=== PATIENT | male | born 1990 | race Caucasian/White ===

== ENCOUNTER 2020-05-29 06:54 | Outpatient (NON) | payer OTHER, SELFPAY ==
[2020-05-29 19:55] LABS: SARS-CoV-2 RNA PCR Positive
== END 2020-05-29 06:55 ==
PROVIDERS: PCP Family Medicine; Visit Provider Family Medicine
DX: U07.1 COVID-19 (principal)
CPT/HCPCS: 87635; C9803; U0003

== ENCOUNTER 2020-09-18 13:22 | Outpatient (CLI) | payer OTHER, SELFPAY | END 2020-09-18 13:23 | disposition home or self-care (01) | LOC: ANHCOVIDVC 13:22 | PROVIDERS: PCP Family Medicine | DX: Z23 Encounter for immunization (principal) | CPT/HCPCS: 0001A; 91300 ==

== ENCOUNTER 2020-10-09 11:34 | Outpatient (CLI) | payer OTHER, SELFPAY | END 2020-10-09 11:35 | disposition home or self-care (01) | LOC: ANHCOVIDVC 11:34 | PROVIDERS: PCP Family Medicine | DX: Z23 Encounter for immunization (principal) | CPT/HCPCS: 0002A; 91300 ==

== ENCOUNTER 2022-05-20 10:50 | Emergency (ER) | payer OTHER, SELFPAY ==
[2022-05-20 10:58] VITALS: BP 142/87; PULSE 115; RESP 20; TEMP 36.3; O2SAT 96
--- NOTE | 2022-05-20 12:24 | ED.URI ---
HPI - URI/Sore Throat General Chief Complaint: Upper Respiratory Infection Stated Complaint: Body Ache/Fever/Cough Time Seen by Provider: 05/20/22 12:24 Source: patient and RN notes reviewed Mode of arrival: ambulatory Limitations: no limitations History of Present Illness HPI Narrative: 31-year-old male presented for complaint of headache, body aches, sinus pressure/congestion, cough, fever/chills. Symptoms worsening over the last 2 days. he denies shortness of breath, wheezing, nausea, vomiting, diarrhea. He has taking Tylenol for symptoms. He endorses sick contacts. MD elicited complaint: cough Related Data Home Medications Medication Instructions Recorded Confirmed clonazepam 0.5 mg tablet 0.5 mg PO DIRECTED 05/20/22 05/20/22 venlafaxine 75 mg capsule,extended 75 mg PO DIRECTED 05/20/22 05/20/22 release 24 hr Allergies Allergy/AdvReac Type Severity Reaction Status Date / Time Cephalosporins Allergy Intermediate Hives / Verified 05/20/22 11:55 Red Face cefaclor Allergy Unknown Hives Verified 05/20/22 11:55 Review of Systems Review of Systems: CONSTITUTIONAL: Endorses malaise, chills, sweats, fever EYES: Denies visual changes, redness, or discharge ENT: Reports rhinorrhea, congestion, sinus pain CARDIOVASCULAR: Denies chest pain, palpitations, edema RESPIRATORY: Reports cough, post nasal drainage. Denies dyspnea GASTROINTESTINAL: Denies abdominal pain, nausea, vomiting, diarrhea SKIN: Denies rash or itching MUSCULOSKELETAL: Endorses myalgia PMFSH Social History Social History Smoking status: Never smoker Second hand tobacco smoke exposure: No Alcohol intake: current Exam Narrative: GENERAL: Ill-appearing, nontoxic HEAD: Normocephalic EYES: PERRLA, conjunctivae clear ENT: Mucous membranes moist. TM pearly walters with light reflex bilaterally; no tragal tenderness. Oropharynx erythematous without lesions or exudate NECK: Supple. No lymphadenopathy CHEST: Clear to auscultation, breath sounds equal. No wheezing, rhonchi, rales, or stridor. No respiratory distress, speaks in full sentences. HEART: Regular rate and rhythm. No murmur heard. SKIN: Warm, dry, no rash. NEURO: Alert and oriented x3. PSYCH: Normal mood and affect Course Course Emergency Course: Patient is aware of diagnosis, understands and agrees to treatment plan. Anticipatory guidance given. Patient agrees to follow-up as directed and is aware of reasons to seek care at the emergency department. Portions of this record may have been created with voice recognition software Level of Care: Express Care Visit Vital Signs Vital signs: Vital Signs Temperature 97.3 F L 05/20/22 10:58 Pulse Rate 115 H 05/20/22 10:58 Respiratory Rate 20 05/20/22 10:58 Blood Pressure 142/87 H 05/20/22 10:58 Pulse Oximetry 96 05/20/22 10:58 Oxygen Delivery Room Air 05/20/22 10:58 Temperature 97.3 F L 05/20/22 10:58 Pulse Rate 115 H 05/20/22 10:58 Respiratory Rate 20 05/20/22 10:58 Blood Pressure 142/87 H 05/20/22 10:58 Pulse Oximetry 96 05/20/22 10:58 Oxygen Delivery Room Air 05/20/22 10:58 reviewed MDM - URI/Sore Throat MDM Narrative Medical decision making narrative: Due to lack of resources, unable to perform influenza test at this time. Patient verbalizes understanding. He stated he was interested in Tamiflu. Risks versus benefits reviewed with patient. Patient then declined prescription. Advised supportive measures and signs/symptoms to go to the ER. Pt is appropriate for outpt treatment and f/u. Differential Diagnosis Differential diagnosis: Likely upper respiratory infection, sinusitis and viral infection Discharge Plan Discharge Clinical Impression: Viral infection Patient Disposition: Home, Self-Care Condition: Stable Instructions: Influenza (ED) Additional Instructions: You should avoid crowds until you
== END 2022-05-20 12:36 | disposition home or self-care (01) ==
PROVIDERS: Emergency Provider Nurse Practitioner Family
DX: B34.9 Viral infection, unspecified (principal); Z20.822 Contact with and (suspected) exposure to COVID-19
CPT/HCPCS: 87426; 99213; C9803; G0463